=== PATIENT | female | born 1950 | race Caucasian/White ===

== ENCOUNTER 2023-10-12 04:18 | Day surgery (SDC) | payer OTHER ==
[2023-10-06 11:52] VITALS: BMI 18.3
[2023-10-12] MEDS ORDERED: MIDAZOLAM HCL 2 MG/2 ML SINGLE DOSE VIAL ONE (09:50)
[2023-10-12] MEDS ORDERED: PROPOFOL 20 ML ONE (09:50)
[2023-10-12] MEDS ORDERED: PROMETHAZINE HCL 25 MG/1 ML VIAL IVPB PRN (12:47)
[2023-10-12] MEDS ORDERED: ONDANSETRON 4 MG/2 ML VIAL IVPUSH PRN (12:47)
[2023-10-12] MEDS ORDERED: LACTATED RINGERS SOLUTION 1,000 ML IV SCH (13:00)
[2023-10-12 14:18] VITALS: BP 142/69; PULSE 66; RESP 16; TEMP 97.7
== END 2023-10-12 14:45 | disposition home or self-care (01) ==
LOC: JASU-SURG 04:18
PROVIDERS: ATTEND Obstetrics & Gynecology
PROC: 0UDB7ZX Extraction of Endometrium, Via Natural or Artificial Opening, Diagnostic (ICD-10-PCS; principal; 2023-10-12 11:30)
PROC: 0UJD8ZZ Inspection of Uterus and Cervix, Via Natural or Artificial Opening Endoscopic (ICD-10-PCS; 2023-10-12 11:30)
DX: L85.8 Other specified epidermal thickening (principal)
CPT/HCPCS: 88305-TC; 94760